=== PATIENT | male | born 1985 | race Caucasian/White ===

== ENCOUNTER → 2019-09-11 | Day surgery (SDC) | payer OTHER ==
[~2019-09-11] MED LIST: BUPIVACAINE 0.5%/EPI 30 ML SDV INJ ONE; CEFAZOLIN SOD 1 GM/NS 50ML 100 ML IV ONE; DEXAMETHASONE SOD PHOS INJ 4 MG/ML VIAL ONE; FENTANYL CITRATE/PF 100MCG/2 ML INJ ONE; KETOROLAC TROMETHAMINE 30 MG/ML VIAL ONE; LIDOCAINE HCL 2% LOCAL INJ 5 ML SDV VIAL INJ ONE; MIDAZOLAM HCL 2 MG/2 ML VIAL ONE; ONDANSETRON HCL INJ 2MG/ML 2ML 2 MG/ML VIAL ONE; PROPOFOL IV EMULSION 10 MG/ML 20 ML VIAL ONE; SEVOFLURANE INHAL SOLN 250 ML PEN BTL ONE
--- OUTSIDE RECORDS SUMMARY | 2019-09-11 05:51 | XMS REPORT | Encounter Summary ---
Author Organization Unknown Address [address] [place] [address] Phone [phone] Care Team Providers Care [employer] Gunner Name Role Phone Dr. Kishan Burgos 3 [phone] Allison Chacon MD 105 [phone] Robert Higgins MD 114 [phone] Reason for Visit Annual physical - male Instructions 1. Adult health examination CBC w/ auto diff CMP, serum or plasma TSH, serum or plasma lipid panel, serum HbA1c (hemoglobin A1c), blood 2. Influenza vaccination Afluria Qd 2018- (36 mos up)(PF)60 m cg (15 mcg x4)/0.5 mL IM syringe 3. Pain in left knee XR, knee, 3 view 4. Body mass index 25-29 - overweight learning about healthy weight Discussion Note: None recorded. Plan of Care Patient Instructions RTC prn Reminders Provider Appointments [employer]/EST CPX on or around 02/28/2020 Kishan Zuleta MD Lab CBC W/ Auto Diff 02/27/2019 [facility] CMP, Serum or Plasma 02/27/2019 [facility] TSH, Serum or Plasma 02/27/2019 [facility] Lipid Panel, Serum 02/27/2019 [facility] HbA1C (Hemoglobin a1C), Blood 02/27/2019 [facility] Referral None recorded. Procedures None recorded. Surgeries None recorded. Imaging XR, Knee, 3 View 02/27/2019 [facility] Medications No Medications Reported Medications Administered None recorded. Vitals Height Weight BMI Blood Pressure 6 ft 1 in 225 lbs 29.7 kg/m2 120/70 mm[Hg] Results Lab Results None recorded. Allergies Code Code System Name Reaction Severity Status Onset NKDA Problems No Known Problems Procedures Date Name Performed by 05/08/2013 Vasectomy Information not avai lable Urology Surgery Procedure Information no t available 02/27/2019 XR, Knee, 3 View [facility] [address] [facility] [address] [place], [place] [id number] (Work Place) Vaccine List Vaccine Type influenza, injectable, quadrivalent 05/08/2018 Tdap 05/08/2014 Social History Tobacco Smoking Status Never Smoker Past Encounters 02/27/2019 Adult Health Examination; Influenza Vaccination; Pain in Left Knee; Body Mass Index 25-29 - Overweight Kishan Maryam Burgos MD: [id number], [address], [place] [address], Ph. History of Present Illness Note:<div>WA desired.</div><div>
</div>pain of right elbow joint - better w/ meds and rest.<div>XR, elbow, 3 or more view - did not need.<div>ibuprofen 800 mg tablet 1 tablet 3 times a day as needed
</div><div>predniSONE 20 mg tablet 2 tablets every day in the morning
</div><div>
</div><div>lesion of scalp - better. Lesion removed.
</div><div>Refer Dr. Traci ? - saw</div><div>
</div><div>male pattern alopecia - stable
</div><div>Monitor
</div><div>Pt OK w/ hair loss
</div><div>Consider Finasteride, Rogaine but declines
< /div><div>
</div><div>sleep disorder - did sleep study. Nl per Pt.
</div> <div>Refer Pulm, per insurance</div><div>
</div><div>BTW,</div><div>knee - Lt knee pops sometimes when walks. NT.</div><div>x 1 yr.</div><div>no fall / trauma / strain.</div><div>Pt can maneuver it to stop,</div><div></div></div> Review of Systems:ROS as noted in the HPI Review of Systems Comprehensive General Adult ROS Reported By: Patient Constitutional: Constitutional: no fever, no night sweats, no significant weight gain, no significant weight loss, no exercise intolerance Eyes: Eyes: no dry eyes, no vision change, no irritation ENMT: Ears: no difficulty hearing, no ear pain. Nose: no frequent nosebleeds, no nose problems, no sinus problems. Mouth/Throat: no sore throat, no bleeding gums, no snoring, no dry mouth, no mouth ulcers, no oral abnormalities, no teeth problems Cardiovascular: Cardiovascular: no chest sandi n, no arm pain on exertion, no shortness of breath when walking, no shortness of breath when lying down, no palpitations, no known heart murmur, no lightheadedness Respiratory: Respiratory: no cough, no wh eezing, no shortness of breath, no coughing up blood, no sleep apnea Gastrointestinal: Gastrointestinal: no abdomin al pain, no nausea, no vomiting, no constipation, normal appetite, no diarrhea, not vomiting blood, no dyspepsia, no GERD Genitourinary: Genitourinary: no incontinen ce, no difficulty urinating, no hematuria, no increased frequency Musculoskeletal: Musculoskeletal: no muscle a ches, no muscle weakness, no arthralgias/joint pain, no back pain, no swelling in the extremities Integumentary: Skin: no abnormal mole, no j aundice, no rashes, no laceration Neurologic: Neurologic: no loss of consc iousness, no weakness, no numbness, no seizures, no dizziness, no migraines, no headaches, no tremor Psychiatric: Psych: no depression, no sle ep disturbances, feeling safe in a relationship, no alcohol abuse, no anxiety, no hallucinations, no suicidal thoughts Endocrine: Endocrine: no fatigue Hematologic/Lymphatic: Hematologic/Lymphatic no swo llen glands, no bruising, no excessive bleeding Allergic/Immunologic: Allergy/Immunologic: no runn y nose, no sinus pressure, no itching, no hives, no frequent sneezing Physical Exam General Adult Exam (male) Reported By: Patient Constitutional: General Appearance: healthy- appearing, well-nourished, well- developed. Level of Distress: NAD. Ambulation: ambulating normally Psychiatric: Insight: good judgement. Men toni Status: active and alert, normal mood, normal affect. Orientation: to time, to place, to person. Memory: recent memory normal, remote memory normal Head: Head: normocephalic, atrauma tic Eyes: Lids and Conjunctivae: non-i njected, no discharge, no pallor. Pupils: PERRLA. EOM: EOMI. Lens: clear. Sclerae: non-icteric. Vision: peripheral vision grossly intact, acuity grossly intact ENMT: Ears: no lesions on external ear, EACs clear, TMs clear, TM mobility normal. Hearing: no hearing loss. Nose: no lesions on external nose, nares patent, no septal deviation, nasal passages clear, no sinus tenderness, no nasal discharge. Lips, Teeth, and Gums: no mouth or lip ulcers, no bleeding gums, normal dentition. Oropharynx: moist mucous membranes, no erythema, no exudates, tonsils not enlarged Neck: Neck: supple, trachea midlin e, no masses, FROM. Lymph Nodes: no cervical LAD, no supraclavicular LAD, no axillary LAD, no inguinal LAD. Thyroid: no enlargement, non-tender, no nodules Lungs: Respiratory effort: no dyspn ea. Auscultation: breath sounds normal, good air movement, CTA except as noted, no wheezing, no rales/crackles, no rhonchi Cardiovascular: Heart Auscultation: RRR, nor mal S1, normal S2, no murmurs, no rubs, no gallops. Neck vessels: no carotid bruits. Pulses including femoral / pedal: normal throughout Abdomen: Bowel Sounds: normal. Inspec tion and Palpation: soft, non-distended, no tenderness, no guarding, no rebound tenderness, no masses, no CVA tenderness. Liver: non-tender, no hepatomegaly. Spleen: non-tender, no splenomegaly Musculoskeletal:: Motor Strength and Tone: nor mal, normal tone. Joints, Bones, and Muscles: normal movement of all extremities, no contractures, no bony abnormalities, no malalignment, no tenderness. Extremities: no cyanosis, no edema, no varicosities Neurologic: Gait and Station: normal gai t, normal station. Cranial Nerves: grossly intact. Sensation: grossly intact. Reflexes: DTRs 2+ bilaterally throughout. Coordination and Cerebellum: no tremor Skin: Inspection and palpation: no lesions, no jaundice Back: Thoracolumbar Appearance: no rmal curvature; No spinal tenderness to palpation
--- OUTSIDE RECORDS SUMMARY | 2019-09-11 05:51 | XMS REPORT ---
Author Author [facility] Organization [facility] Address Unknown Phone Unavailable Care Team Providers Care Associate Professor Of Chemistry Name Role Phone Unavailable Unavailable Problems This patient has no known problems. Allergies, Adverse Reactions, Alerts This patient has no known allergies or adverse reactions. Medications This patient has no known medications. Immunizations Ordered Immunization Name Filled Immunization Name Date Sta tus Comments influenza, injectable, quadrivalent influenza, injectable, q uadrivalent 2018-05-08 00:00:00 Completed Tdap Tdap 2014-05-08 00:00:00 Completed Vital Signs Vital Name Observation Time Observation Value Comments BP Diastolic 2019-02-27 00:00:00 70 mm[Hg] Height 2019-02-27 00:00:00 73 [in_i] BP Systolic 2019-02-27 00:00:00 120 mm[Hg] Body Weight 2019-02-27 00:00:00 225 [lb_av] BP Diastolic 2018-10-30 00:00:00 74 mm[Hg] Height 2018-10-30 00:00:00 73 [in_i] BP Systolic 2018-10-30 00:00:00 120 mm[Hg] Body Weight 2018-10-30 00:00:00 220.8 [lb_av] Procedures and Interventions Procedure Date / Time Performed Performing Clinici an X-RAY OF KNEE 3 VIEW 2019-02-27 00:00:00 X-RAY EXAM OF ELBOW 2018-10-30 00:00:00 Vasectomy 2013-05-08 00:00:00 Urology Surgery Procedure Plan of Care Planned Activity Planned Date Comments Encounters Start Date/Time End Date/Time Encounter Type Admission Type Att[facility] Care Department Encounter ID 2019-02-27 00:00:00 2019-02-27 00:00:00 Kishan Burgos MD: [id number], [address], [place] [address], Ph. [facility] [id number] 2018-10-30 00:00:00 2018-10-30 00:00:00 Kishan Burgos MD: [id number], [address], [place] [address], Ph. [facility] [phone]
--- NOTE | 2019-09-11 07:10 | NUR ---
SPIRITUAL CARE - Pre-Surgery Assessment: Pt in bed. Pt reported supportive attention from family and friends. Intervention: I provided pastoral presence, hospitality, and sympathetic listening. I acquainted pt with availability of infantryman while hospitalized. Outcome: Pt expressed appreciation for visit. No need for follow up indicated at this time. ISABELLA Adamslain Spiritual Care Department O: [phone]
[2019-09-11 09:28] VITALS: BP 136/80
--- NOTE | 2019-09-18 23:16 | Operative Report ---
DATE OF PROCEDURE: 09/11/2019 SURGEON: Vito Hernandez MD PREOPERATIVE DIAGNOSIS: Left knee medial meniscus tear, left knee degenerative joint disease of the knee. POSTOPERATIVE DIAGNOSIS: Left knee medial meniscus tear, left knee degenerative joint disease of the knee. OPERATIONS/PROCEDURE PERFORMED: The patient underwent a left knee examination under anesthesia, a left knee arthroscopy, left knee chondroplasty of the medial femoral condyle, medial tibial plateau and lateral tibial plateau and a left knee arthroscopic partial medial meniscectomy. CHEMIST ORGANIC: There was no technical staff assistant. ANESTHESIA: General endotracheal anesthesia. INTRAVENOUS FLUIDS: Per the anesthesia record. BLOOD LOSS: Minimal. COMPLICATIONS: None. BRIEF DISCUSSION OF THE PATIENT'S OPERATIVE PROCEDURE: Mr. Shanks was taken to the operating room and placed in supine position on the operating table. Following induction of general anesthesia as well as endotracheal intubation, the patient's left lower extremity was examined under anesthesia. He was found to have a mild effusion within the knee joint, but otherwise ligamentously stable knee. The patient's lower extremity was prepped and draped in standard surgical fashion. A two-port technique used to provide this patient arthroscopic evaluation of the knee joint. Examination of suprapatellar pouch and medial and lateral gutters found no evidence of loose bodies. The scope was advanced to the medial compartment. Examination the medial compartment demonstrated chondromalacia of the articulating surfaces. There was also a parrot beak-type tear of the medial meniscus. A combination of biting forceps and a motorized shaver was used to resect the torn portion of meniscus. Chondroplasties of the medial femoral condyle and medial tibial plateau performed at this time. Scope was advanced to the intercondylar notch. The anterior cruciate ligament was identified and found to be intact. The scope was then advanced into the lateral compartment and chondromalacia of the lateral tibial plateau was encountered. A chondroplasty of the surface was performed at this time. The knee was inflated with sterile normal saline. Each of the portal sites were closed using 4-0 nylon suture. The portal sites as well as the knee itself was injected with 0.5% Marcaine with epinephrine. Sterile dressings were applied and the patient was then awakened and taken to postanesthesia care unit in stable condition. Vito Hernandez MD EBR/VASILE Luis: 09/18/2019 16:58:21 /[id number]
== END | disposition home or self-care (01) ==
LOC: OR 05:25
PROVIDERS: ATTEND Specialist
DX: S83.222A Peripheral tear of medial meniscus, current injury, left knee, initial encounter (principal); M67.52 Plica syndrome, left knee; M17.12 Unilateral primary osteoarthritis, left knee; M94.262 Chondromalacia, left knee; X58.XXXA Exposure to other specified factors, initial encounter; Z01.812 Encounter for preprocedural laboratory examination; Z11.59 Encounter for screening for other viral diseases
CPT/HCPCS: 29881; 87635; J0690; J1100; J1885; J2001; J2250; J2405; J2704; J3010